=== PATIENT | female | born 1980 | race Caucasian/White ===

== ENCOUNTER 2018-08-10 22:34 | Inpatient (IN) | payer OTHER ==
[~2018-08-10] VITALS: Ht 160 cm; Wt 65.8 kg
[2018-08-10] MEDS ORDERED: THIAMINE HCL 200 MG/2 ML VIAL IM ONE (23:00)
[2018-08-10] MEDS ORDERED: ONDANSETRON ODT 4 MG TAB.RAPDIS SL PRN (23:00)
[2018-08-10] MEDS ORDERED: MAG HYDROX/AL HYDROX/SIMETH 30 ML LIQUID UDC PO PRN (23:00)
[2018-08-10] MEDS ORDERED: LORAZEPAM 1 MG TABLET PO PRN ×2 (23:00)
[2018-08-10] MEDS ORDERED: ONDANSETRON 4 MG/2 ML VIAL IM PRN (23:00)
[2018-08-10] MEDS ORDERED: MAGNESIUM HYDROXIDE 30 ML LIQUID UDC PO PRN (23:00)
[2018-08-10] MEDS ORDERED: LOPERAMIDE HCL 2 MG CAPSULE PO PRN ×2 (23:00)
[2018-08-10] MEDS ORDERED: ACETAMINOPHEN 325 MG TABLET PO PRN (23:00)
[2018-08-10] MEDS ORDERED: LORAZEPAM 2 MG/1 ML VIAL IM PRN (23:00)
[2018-08-10] MEDS ORDERED: MIRALAX 17 GM POWD.PACK PO PRN (23:00)
[2018-08-10] MEDS ORDERED: IBUPROFEN 400 MG TABLET PO PRN (23:00)
[2018-08-10] MEDS ORDERED: diphenhydrAMINE 50 MG CAPSULE PO PRN (23:00)
[2018-08-10] MEDS ORDERED: CLONIDINE HCL 0.1 MG TABLET PO PRN (23:00)
[2018-08-10] MEDS ORDERED: DICYCLOMINE HCL 20 MG TABLET PO PRN (23:00)
[2018-08-10 23:26] LABS: BASOPHILS # (AUTO) 0.1 K/uL (0.0-8.0); BASOPHILS % (AUTO) 0.7 % (0.0-2.0); EOSINOPHILS # (AUTO) 0.2 K/uL (0.0-0.7); EOSINOPHILS % (AUTO) 1.6 % (0.0-7.0); HEMATOCRIT 42.9 % (31.2-41.9); HEMOGLOBIN 14.9 g/dL (10.9-14.3); LYMPHOCYTES # (AUTO) 2.1 K/uL (20.0-40.0); MEAN CORPUSCULAR HEMOGLOBIN 32.8 uug (24.7-32.8); MEAN CORPUSCULAR HGB CONC 35 g/dL (32.3-35.6); MEAN CORPUSCULAR VOLUME 94.7 fL (75.5-95.3); MONOCYTES # (AUTO) 0.4 K/uL (2.0-10.0); MONOCYTES % (AUTO) 3.8 % (0.0-11.0); NEUTROPHILS # (AUTO) 7.7 K/uL (1.8-8.9); NEUTROPHILS % (AUTO) 73.9 % (38.5-71.5); PLATELET COUNT (AUTO) 276 K/uL (179-408); RED BLOOD CELL COUNT(AUTO) 4.53 MIL/uL (3.63-4.92); WHITE BLOOD COUNT (AUTO) 10.4 K/uL (3.8-11.8)
[2018-08-10] MEDS ORDERED: QUET200T PO (23:33)
[2018-08-10] MEDS ORDERED: QUETIAPINE FUMARATE 200 MG TABLET PO ONE (23:45)
[2018-08-10] MEDS: HYDROXYZINE PAMOATE 25 MG CAPSULE PO PRN (23:55)
[2018-08-11 00:03] VITALS: BP 123/81
[2018-08-11 00:28] LABS: *AMPHETAMINE, URINE NEGATIVE (NEGATIVE); *BARBITURATE, URINE NEGATIVE (NEGATIVE); *CANNABINOID, URINE NEGATIVE (NEGATIVE); *COCCAINE, URINE NEGATIVE (NEGATIVE); *OPIATE, URINE NEGATIVE (NEGATIVE); *PHENCYCLIDINE SCREEN,URINE NEGATIVE (NEGATIVE)
[2018-08-11 00:56] LABS: BILIRUBIN,TOTAL 0.2 mg/dL (0.2-1.0); CREATININE 0.9 mg/dL (0.6-1.3); POTASSIUM 3.9 mmol/L (3.5-5.1); TOTAL PROTEIN, SERUM 8.1 g/dL (6.4-8.2)
[2018-08-11 01:07] LABS: THYROID STIMULATING HORMONE 1.238 mIU/mL (0.358-3.740)
[2018-08-11] MEDS ORDERED: ESCI10TA55 PO (01:10)
[2018-08-11] MEDS ORDERED: GABA-534 PO (01:10)
[2018-08-11] MEDS ORDERED: PANT40TA4 PO (01:10)
[2018-08-11] MEDS ORDERED: QUET25TA PO (01:10)
[2018-08-11] MEDS ORDERED: GABA600T2 PO (01:11)
[2018-08-11] MEDS ORDERED: BIOT10004 PO (01:11)
[2018-08-11 08:00] VITALS: BP 100/60
[2018-08-11] MEDS ORDERED: TUBERCULIN,PURIF.PROT.DERIV. 5 TU/0.1 ML TEST ID ONE (09:00)
[2018-08-11] MEDS: FOLIC ACID 1 MG TABLET PO SCH (09:00)
[2018-08-11] MEDS: MULTIVITAMINS,THERAPEUTIC TABLET PO SCH (09:00)
[2018-08-11] MEDS: THIAMINE HCL 100 MG TABLET PO SCH (09:00)
[2018-08-11] MEDS: GABAPENTIN 300 MG CAPSULE PO SCH ×3 (10:30→16:49)
[2018-08-11] MEDS: ESCITALOPRAM OXALATE 10 MG TABLET PO SCH (10:30)
[2018-08-11] MEDS ORDERED: 5 DAY PHENOBARBITAL TAPER -SERENITY PROTOCOL PO PRN (11:15)
[2018-08-11 12:00] VITALS: BP 107/51
[2018-08-11] MEDS: PHENOBARBITAL 60 MG TABLET PO SCH ×3 (13:00→22:08)
[2018-08-11 16:00] VITALS: BP 111/67
[2018-08-11 18:24] LABS: *URINE HCG, QUAL NEGATIVE (NEGATIVE)
[2018-08-11 20:08] VITALS: BP 109/61
[2018-08-11] MEDS: QUETIAPINE FUMARATE 200 MG TABLET PO SCH (22:08)
[2018-08-12 08:00] VITALS: BP 117/75
[2018-08-12 08:14] LABS: CREATININE 0.9 mg/dL (0.6-1.3); POTASSIUM 3.9 mmol/L (3.5-5.1)
[2018-08-12] MEDS: PHENOBARBITAL 60 MG TABLET PO SCH ×4 (08:36→20:57)
[2018-08-12] MEDS: ESCITALOPRAM OXALATE 10 MG TABLET PO SCH (08:36)
[2018-08-12] MEDS: PANTOPRAZOLE SODIUM 40 MG TABLET.DR PO SCH (08:37)
[2018-08-12] MEDS: GABAPENTIN 300 MG CAPSULE PO SCH ×3 (08:37→16:39)
[2018-08-12] MEDS: FOLIC ACID 1 MG TABLET PO SCH (08:37)
[2018-08-12] MEDS: THIAMINE HCL 100 MG TABLET PO SCH (08:37)
[2018-08-12] MEDS: MULTIVITAMINS,THERAPEUTIC TABLET PO SCH (08:37)
[2018-08-12] MEDS: HYDROXYZINE PAMOATE 25 MG CAPSULE PO PRN (10:18)
[2018-08-12 12:00] VITALS: BP 136/92
[2018-08-12 13:06] LABS: HEPATITIS B SURFACE AG Negative (Negative)
[2018-08-12 16:00] VITALS: BP 135/92
[2018-08-12 20:17] VITALS: BP 139/90
[2018-08-12] MEDS: QUETIAPINE FUMARATE 200 MG TABLET PO SCH (20:57)
[2018-08-13 08:00] VITALS: BP 110/76
[2018-08-13] MEDS: PANTOPRAZOLE SODIUM 40 MG TABLET.DR PO SCH (08:45)
[2018-08-13] MEDS: MULTIVITAMINS,THERAPEUTIC TABLET PO SCH (08:46)
[2018-08-13] MEDS: GABAPENTIN 300 MG CAPSULE PO SCH ×3 (08:46→17:33)
[2018-08-13] MEDS: FOLIC ACID 1 MG TABLET PO SCH (08:46)
[2018-08-13] MEDS: THIAMINE HCL 100 MG TABLET PO SCH (08:46)
[2018-08-13] MEDS: ESCITALOPRAM OXALATE 10 MG TABLET PO SCH (08:46)
[2018-08-13] MEDS ORDERED: PHENOBARBITAL 60 MG TABLET PO SCH (09:00)
[2018-08-13 12:00] VITALS: BP 124/80
[2018-08-13] MEDS ORDERED: [UNRECOGNIZED DRUG - REMARK] PO PRN (13:30)
[2018-08-13] MEDS: PHENOBARBITAL 60 MG TABLET PO SCH ×2 (14:04→21:10)
[2018-08-13 16:00] VITALS: BP 123/90
[2018-08-13 20:08] VITALS: BP 120/69
[2018-08-13] MEDS: QUETIAPINE FUMARATE 200 MG TABLET PO SCH (21:09)
[2018-08-14 08:30] VITALS: BP 106/64
[2018-08-14] MEDS ORDERED: PHENOBARBITAL 60 MG TABLET PO SCH ×2 (09:00)
[2018-08-14] MEDS: ESCITALOPRAM OXALATE 10 MG TABLET PO SCH (09:31)
[2018-08-14] MEDS: MULTIVITAMINS,THERAPEUTIC TABLET PO SCH (09:31)
[2018-08-14] MEDS: THIAMINE HCL 100 MG TABLET PO SCH (09:31)
[2018-08-14] MEDS: PANTOPRAZOLE SODIUM 40 MG TABLET.DR PO SCH (09:31)
[2018-08-14] MEDS: GABAPENTIN 300 MG CAPSULE PO SCH ×3 (09:31→17:37)
[2018-08-14] MEDS: FOLIC ACID 1 MG TABLET PO SCH (09:31)
[2018-08-14 12:00] VITALS: BP 106/64
[2018-08-14] MEDS ORDERED: ESCI10TA PO (14:45)
[2018-08-14] MEDS ORDERED: HYDR-3895 PO (14:45)
[2018-08-14 16:30] VITALS: BP 118/79
[2018-08-14 20:00] VITALS: BP 146/91
[2018-08-14] MEDS: QUETIAPINE FUMARATE 200 MG TABLET PO SCH (21:20)
[2018-08-15] VITALS: BP 128/86
[2018-08-15 08:00] VITALS: BP 107/72
[2018-08-15] MEDS ORDERED: ESCITALOPRAM OXALATE 10 MG TABLET PO SCH (09:00)
[2018-08-15] MEDS ORDERED: PHENOBARBITAL 60 MG TABLET PO SCH (09:00)
[2018-08-15] MEDS: GABAPENTIN 300 MG CAPSULE PO SCH (09:26)
[2018-08-15] MEDS: MULTIVITAMINS,THERAPEUTIC TABLET PO SCH (09:26)
[2018-08-15] MEDS: THIAMINE HCL 100 MG TABLET PO SCH (09:26)
[2018-08-15] MEDS: PANTOPRAZOLE SODIUM 40 MG TABLET.DR PO SCH (09:26)
[2018-08-15] MEDS: FOLIC ACID 1 MG TABLET PO SCH (09:27)
== END 2018-08-15 10:12 | disposition home or self-care (01) | DRG 895 ==
LOC: SRC 22:34
PROVIDERS: ADMIT Internal Medicine; ATTEND Internal Medicine
PROC: HZ2ZZZZ Detoxification Services for Substance Abuse Treatment (ICD-10-PCS; principal; 2018-08-10)
PROC: HZ41ZZZ Group Counseling for Substance Abuse Treatment, Behavioral (ICD-10-PCS; 2018-08-12)
PROC: HZ59ZZZ Individual Psychotherapy for Substance Abuse Treatment, Supportive (ICD-10-PCS; 2018-08-13)
PROC: HZ31ZZZ Individual Counseling for Substance Abuse Treatment, Behavioral (ICD-10-PCS; 2018-08-13)
DX: F10.230 Alcohol dependence with withdrawal, uncomplicated (principal); F31.60 Bipolar disorder, current episode mixed, unspecified; Y90.9 Presence of alcohol in blood, level not specified; G47.00 Insomnia, unspecified; F17.210 Nicotine dependence, cigarettes, uncomplicated; R73.9 Hyperglycemia, unspecified; F41.1 Generalized anxiety disorder
CPT/HCPCS: 36415; 70030-TC; 80307; 83690; 83735; 84443; 84703; 85025; 86592; 86705; 86803; 87340; 87806; G0480; J8499